=== PATIENT | female | born 1930 | race African-American/Black ===

== ENCOUNTER 2017-10-09 08:06 | Inpatient (IN) | payer MEDICARE, MEDICAID ==
[~2017-10-09] VITALS: Ht 162.6 cm; Wt 63.5 kg
[2017-10-09] MEDS ORDERED: POTASSIUM CHLO10 ME3 ORAL (08:23)
[2017-10-09] MEDS ORDERED: GABAPENTIN100 MG ORAL (08:23)
[2017-10-09] MEDS ORDERED: ACETAMINOPHEN325 M1 ORAL (08:23)
[2017-10-09] MEDS ORDERED: HYDROCHLOROTH12.5 M2 ORAL (08:23)
[2017-10-09] MEDS ORDERED: ENALAPRIL MALEA20 MG ORAL (08:23)
[2017-10-09] MEDS ORDERED: ASPIRIN81 MG ORAL (08:23)
[2017-10-09] MEDS ORDERED: FAMOTIDINE20 MG ORAL (08:23)
[2017-10-09] MEDS ORDERED: DULCOLAX10 MG RC (08:23)
[2017-10-09] MEDS ORDERED: COLACE100 MG ORAL (08:23)
[2017-10-09] MEDS ORDERED: METFORMIN HCL1000 M1 ORAL (08:23)
[2017-10-09] MEDS ORDERED: AMLODIPINE BESYL5 MG ORAL (08:23)
[2017-10-09] MEDS ORDERED: MILK OF MA400 MG/51 ORAL (08:23)
[2017-10-09] MEDS ORDERED: ATORVASTATIN CA40 MG ORAL (08:23)
--- NOTE | 2017-10-09 08:24 | Emergency Room Report ---
History of Present Illness General Chief Complaint: Chest Pain Source: Patient, EMS Present Illness HPI Patient presents with complaints of left-sided chest pain History of present illness is limited patient does have underlying mild dementia Points to the left upper chest for the discomfort unclear the exact time of ideology Denies any shortness of breath Patient was given nitroglycerin and aspirin by paramedics at this time reports improved pain level Denies any fall Allergies: Coded Allergies: No Known Allergies (Unverified , 10/09/17) Patient History Past Medical History: see triage record Pertinent Family History: none Reviewed Nursing Documentation: PMH: Agreed; PSxH: Agreed Nursing Documentation-PMH Past Medical History: No History, Except For Hx Cardiac Problems: Yes - CAD, angina, anemia, hyperlipidemia Hx Hypertension: Yes Hx Pacemaker: Yes History Of Psychiatric Problem: Yes - dementia Review of Systems All Other Systems: negative except mentioned in HPI Physical Exam Vital Signs Date Time Temp Pulse Resp B/P (MAP) Pulse Ox O2 Delivery O2 Flow Rate FiO2 10/09/17 08:00 98.2 70 18 118/65 100 Room Air 98.2 Sp02 EP Interpretation: reviewed, normal General Appearance: well appearing, no apparent distress Head: normocephalic, atraumatic Eyes: bilateral eye PERRL, bilateral eye EOMI ENT: hearing grossly normal, normal pharynx, TMs + canals normal, uvula midline Neck: full range of motion, supple, no meningismus, no bony tend Respiratory: lungs clear, normal breath sounds, no rhonchi, no respiratory distress, no retraction, no accessory muscle use Cardiovascular #1: normal peripheral pulses, regular rate, rhythm, no edema, no gallop, no JVD, no murmur Gastrointestinal: normal bowel sounds, non tender, soft, no mass, no organomegaly, non-distended, no guarding, no hernia, no pulsatile mass, no rebound Genitourinary: no CVA tenderness Musculoskeletal: normal inspection Neurologic: responsive - Mild confusion, 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 as tested, motor strength/tone normal, sensory intact Psychiatric: mood/affect normal Skin: normal color, no rash, warm/dry, palpation normal Lymphatic: normal inspection, no adenopathy Medical Decision Making Diagnostic Impression: Primary Impression: ACS (acute coronary syndrome) ER Course Patient is a fairly complex patient with multiple differential to consideration including but not limited to cardiac cardiopulmonary and vascular emergencies Patient's blood work is at baseline levels X-ray imaging does not show any acute pathology Patient stable for further inpatient care CBC no acute disease Chemistry no acute disease Troponin negative Rhythm Strip Diag. Results EP Interpretation: yes Rate: 66 Rhythm: NSR, no PVC's, no ectopy Last Vital Signs Date Time Temp Pulse Resp B/P (MAP) Pulse Ox O2 Delivery O2 Flow Rate FiO2 10/09/17 08:10 98.2 70 18 118/65 100 Room Air 98.2 Status: improved Disposition: ADMITTED INPATIENT Condition: Serious Danika Galarza DO Oct 09, 2017 08:24
[2017-10-09 08:37] LABS: BASOPHILS % (AUTO) 1.4 % (0.0-2.0); EOSINOPHILS % (AUTO) 5.4 % (0.0-3.0); HEMATOCRIT 34.1 % (37.0-47.0); HEMOGLOBIN 10.9 G/DL (12.0-16.0); LYMPHOCYTES % (AUTO) 41.1 % (20.0-45.0); MEAN CORPUSCULAR VOLUME 90 FL (80-99); MONOCYTES % (AUTO) 7.3 % (1.0-10.0); NEUTROPHILS % (AUTO) 44.9 % (45.0-75.0); PLATELET COUNT 275 K/UL (150-450); RED BLOOD COUNT 3.79 M/UL (4.20-5.40); RED CELL DISTRIBUTION WIDTH 10.7 % (11.6-14.8); WHITE BLOOD COUNT 6.3 K/UL (4.8-10.8)
[2017-10-09 08:50] LABS: ANION GAP 3 mmol/L (5-15); BLOOD UREA NITROGEN 19 mg/dL (7-18); CALCIUM 9.5 MG/DL (8.5-10.1); CARBON DIOXIDE 33 MMOL/L (21-32); CHLORIDE 103 MMOL/L (98-107); POTASSIUM 4.1 MMOL/L (3.5-5.1); SODIUM 139 MMOL/L (136-145)
[2017-10-09 09:00] VITALS: BP 127/72
[2017-10-09 09:03] LABS: ALANINE AMINOTRANSFERASE 19 U/L (12-78); ALBUMIN 3.1 G/DL (3.4-5.0); ALBUMIN/GLOBULIN RATIO 0.6 (1.0-2.7); ALKALINE PHOSPHATASE 65 U/L (46-116); ASPARTATE AMINO TRANSFERASE 18 U/L (15-37); BILIRUBIN,TOTAL 0.6 MG/DL (0.2-1.0); CKMB 0.8 NG/ML (0.0-3.6); CREATINE KINASE 40 U/L (26-308)
[2017-10-09] MEDS ORDERED: Enalaprilat 2.5mg/2ml Inj IV PRN (10:45)
[2017-10-09] MEDS ORDERED: Morphine Sulfate 2mg/ml Inj IVP PRN (10:45)
[2017-10-09] MEDS ORDERED: Ketorolac 30mg Inj IV PRN (10:45)
[2017-10-09] MEDS ORDERED: Miralax 17gm pkt ORAL PRN (10:45)
[2017-10-09] MEDS ORDERED: Albuterol/Ipratropium 3ml neb HHN PRN (10:45)
[2017-10-09] MEDS ORDERED: dilTIAZem HCl 25mg/5ml Inj IV PRN (10:45)
[2017-10-09] MEDS ORDERED: Nitroglycerin Subl 0.4mg tab SL PRN (10:48)
[2017-10-09] MEDS: NovoLOG Insulin Flexpen SUBQ SCH ×3 (11:30→21:58)
--- NOTE | 2017-10-09 11:53 | Consultation ---
History of Present Illness General Date patient seen: Oct 09, 2017 Time patient seen: 11:52 Chief Complaint: Chest Pain Present Illness HPI 86 year old female presents with precordial chest pain and pressure. Initial troponin normal, vitals stable. No radiation of pain, lasts several minutes and getting more frequent and intense, no relationship to food. no fevers or recent illnesses. Allergies: Coded Allergies: No Known Allergies (Unverified , 10/09/17) Medication History Scheduled Amlodipine Besylate* (Amlodipine Besylate*), 5 MG ORAL DAILY, (Reported) Aspirin* (Aspirin*), 81 MG ORAL DAILY, (Reported) Atorvastatin Calcium* (Atorvastatin Calcium*), 40 MG ORAL BEDTIME, (Reported) Docusate Sodium* (Colace*), 100 MG ORAL DAILY, (Reported) Enalapril Maleate* (Enalapril Maleate*), 20 MG ORAL DAILY, (Reported) Famotidine (Famotidine), 20 MG ORAL TWICE A DAY, (Reported) Gabapentin* (Gabapentin*), 100 MG ORAL BID, (Reported) Hydrochlorothiazide* (Hydrochlorothiazide*), 12.5 MG ORAL DAILY, (Reported) Magnesium Hydroxide* (Milk Of Magnesia*), 30 ML ORAL DAILY, (Reported) Metformin Hcl* (Metformin Hcl*), 1,000 MG ORAL BID, (Reported) Potassium Chloride (Potassium Chloride), 10 MEQ ORAL DAILY, (Reported) Scheduled PRN Acetaminophen* (Acetaminophen 325MG Tablet*), 650 MG ORAL Q4H PRN for Pain Scale (3-5), (Reported) Miscellaneous Medications Bisacodyl (Dulcolax), 10 MG RC, (Reported) Patient History Healthcare decision maker CARMEN CAMPUZANO Resuscitation status Advanced Directive on File No Review of Systems Constitutional: Reports: no symptoms Eye: Reports: no symptoms ENT: Reports: no symptoms Respiratory: Reports: no symptoms Cardiovascular: Reports: chest pain Gastrointestinal: Reports: no symptoms Genitourinary: Reports: no symptoms Musculoskeletal: Reports: no symptoms Skin: Reports: no symptoms Psychiatric: Reports: no symptoms Neurological: Reports: no symptoms Endocrine: Reports: no symptoms Hematologic/Lymphatic: Reports: no symptoms Physical Exam General Appearance: no apparent distress, alert Lines, tubes and drains: peripheral HEENT: normocephalic, atraumatic Neck: non-tender, normal alignment Respiratory/Chest: chest wall non-tender, lungs clear Cardiovascular/Chest: normal peripheral pulses, normal rate, regular rhythm Abdomen: normal bowel sounds, non tender Extremities: normal range of motion, non-tender Skin Exam: normal pigmentation, warm/dry 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, no motor/sensory deficits Last 24 Hour Vital Signs Date Time Temp Pulse Resp B/P (MAP) Pulse Ox O2 Delivery O2 Flow Rate FiO2 10/09/17 09:00 64 18 127/72 100 Room Air 10/09/17 08:10 98.2 70 18 118/65 100 Room Air 98.2 10/09/17 08:00 98.2 70 18 118/65 100 Room Air 98.2 Laboratory Tests Test 10/09/17 08:15 10/09/17 11:04 White Blood Count 6.3 K/UL (4.8-10.8) Red Blood Count 3.79 M/UL (4.20-5.40) L Hemoglobin 10.9 G/DL (12.0-16.0) L Hematocrit 34.1 % (37.0-47.0) L Mean Corpuscular Volume 90 FL (80-99) Mean Corpuscular Hemoglobin 28.8 PG (27.0-31.0) Mean Corpuscular Hemoglobin Concent 32.0 G/DL (32.0-36.0) Red Cell Distribution Width 10.7 % (11.6-14.8) L Platelet Count 275 K/UL (150-450) Mean Platelet Volume 7.5 FL (6.5-10.1) Neutrophils (%) (Auto) 44.9 % (45.0-75.0) L Lymphocytes (%) (Auto) 41.1 % (20.0-45.0) Monocytes (%) (Auto) 7.3 % (1.0-10.0) Eosinophils (%) (Auto) 5.4 % (0.0-3.0) H Basophils (%) (Auto) 1.4 % (0.0-2.0) Sodium Level 139 MMOL/L (136-145) Potassium Level 4.1 MMOL/L (3.5-5.1) Chloride Level 103 MMOL/L (98-107) Carbon Dioxide Level 33 MMOL/L (21-32) H Anion Gap 3 mmol/L (5-15) L Blood Urea Nitrogen 19 mg/dL (7-18) H Creatinine 1.0 MG/DL (0.55-1.30) Estimat Glomerular Filtration Rate mL/min (>60) Glucose Level 96 MG/DL (74-106) Calcium Level 9.5 MG/DL (8.5-10.1) Total Bilirubin 0.6 MG/DL (0.2-1.0) Aspartate Amino Transf (AST/SGOT) 18 U/L (15-37) Alanine Aminotransferase (ALT/SGPT) 19 U/L (12-78) Alkaline Phosphatase 65 U/L (46-116) Total Creatine Kinase 40 U/L (26-308) Creatine Kinase MB 0.8 NG/ML (0.0-3.6) Creatine Kinase MB Relative Index 2.0 Troponin I 0.000 ng/mL (0.000-0.056) Pending Total Protein 8.0 G/DL (6.4-8.2) Albumin 3.1 G/DL (3.4-5.0) L Globulin 4.9 g/dL Albumin/Globulin Ratio 0.6 (1.0-2.7) L Height (Feet): 5 Height (Inches): 4.00 Weight (Pounds): 140 Medications Current Medications Medications (Trade) Dose Ordered Sig/Duran Route PRN Reason Start Time Stop Time Status Last Admin Dose Admin Acetaminophen (Tylenol) 650 mg Q4H PRN ORAL FEVER 10/09/17 10:45 11/08/17 10:44 Albuterol/ Ipratropium (Albuterol/ Ipratropium) 3 ml Q4H PRN HHN Shortness of Breath 10/09/17 10:45 10/14/17 10:44 Amlodipine Besylate (Norvasc) 5 mg DAILY ORAL 10/10/17 09:00 11/09/17 08:59 Aspirin (ASA) 162 mg DAILY ORAL 10/10/17 09:00 11/09/17 08:59 Aspirin (ASA) 162 mg ONCE ORAL 10/09/17 12:00 10/09/17 13:00 Dextrose (Dextrose 50%) 25 ml STAT PRN IV Hypoglycemia 10/09/17 10:45 11/08/17 10:44 Dextrose (Dextrose 50%) 50 ml STAT PRN IV Hypoglycemia 10/09/17 10:45 11/08/17 10:44 Diltiazem HCl (Cardizem) 10 mg Q1H PRN IV heart rate more than 120, 10/09/17 10:45 11/08/17 10:44 Enalaprilat (Vasotec) 2.5 mg Q6H PRN IV sbp more than 160 10/09/17 10:45 11/08/17 10:44 Gabapentin (Neurontin) 100 mg BID ORAL 10/09/17 18:00 11/08/17 17:59 Heparin Sodium (Porcine) (Heparin 5000 units/ml) 5,000 units EVERY 8 HOURS SUBQ 10/09/17 14:00 11/08/17 13:59 Insulin Aspart (NovoLOG) BEFORE MEALS AND HS SUBQ 10/09/17 11:30 11/08/17 11:29 Ketorolac Tromethamine (Toradol 30mg) 15 mg Q6H PRN IV moderate pain ( 4-6) 10/09/17 10:45 10/14/17 10:44 Morphine Sulfate (Morphine Sulfate) 2 mg Q4H PRN IVP severe Pain (Pain Scale 7-10) 10/09/17 10:45 10/16/17 10:44 Nitroglycerin (Ntg) 0.4 mg Q5MIN X 3 DOSES PRN SL Prn Chest Pain 10/09/17 10:48 11/08/17 10:47 Ondansetron HCl (Zofran) 4 mg Q6H PRN IVP Nausea & Vomiting 10/09/17 10:45 11/08/17 10:44 Pantoprazole (Protonix) 40 mg DAILY ORAL 10/10/17 09:00 11/09/17 08:59 Pantoprazole (Protonix) 40 mg ONCE ORAL 10/09/17 12:00 10/09/17 13:00 Polyethylene Glycol (Miralax) 17 gm DAILYPRN PRN ORAL Constipation 10/09/17 10:45 11/08/17 10:44 Temazepam (Restoril) 15 mg HSPRN PRN ORAL Insomnia 10/09/17 21:00 10/16/17 20:59 Assessment/Plan Status: stable Assessment/Plan Assessment: Chest pain Plan: Serial EKG/Troponin Aspirin Statin Start heparin for: rising troponin, refractory chest pain, EKG changes, hemodynamic instability No indication for cardiac cath at this this time Stress test in AM Nitro prn chest pain TTE to evaluate LV function Alfredo Hernandez MD Oct 09, 2017 11:53
[2017-10-09 11:58] VITALS: BP 150/81
[2017-10-09] MEDS ORDERED: Aspirin Baby 81mg ORAL SCH (12:00)
[2017-10-09] MEDS ORDERED: Lexiscan 0.4mg/5ml syringe IV SCH (12:00)
--- NOTE | 2017-10-09 12:07 | Diagnostic Imaging Report ---
Indication: Chest pain Technique: One view of the chest Comparison: none Findings: Patient is slightly rotated to the right. Lungs and pleural spaces are clear. There is a left chest bifocal pacemaker. The heart size is normal. Aorta is tortuous and calcified. Impression: No acute process
--- NOTE | 2017-10-09 12:12 | History and Physical ---
History of Present Illness General Date patient seen: Oct 09, 2017 Reason for Hospitalization: Chest Pain Present Illness HPI 86 year old female with hx of CAD, HTN, debilitated, pacemaker, dementia [facility] resident presented to ER with complaints of left-sided chest pain. She points to the left upper chest for the discomfort. Patient was given nitroglycerin and aspirin by paramedics and she reports improved pain level. she is admitted to telemetry for further work up. Allergies: Coded Allergies: No Known Allergies (Unverified , 10/09/17) Medication History Scheduled Amlodipine Besylate* (Amlodipine Besylate*), 5 MG ORAL DAILY, (Reported) Aspirin* (Aspirin*), 81 MG ORAL DAILY, (Reported) Atorvastatin Calcium* (Atorvastatin Calcium*), 40 MG ORAL BEDTIME, (Reported) Docusate Sodium* (Colace*), 100 MG ORAL DAILY, (Reported) Enalapril Maleate* (Enalapril Maleate*), 20 MG ORAL DAILY, (Reported) Famotidine (Famotidine), 20 MG ORAL TWICE A DAY, (Reported) Gabapentin* (Gabapentin*), 100 MG ORAL BID, (Reported) Hydrochlorothiazide* (Hydrochlorothiazide*), 12.5 MG ORAL DAILY, (Reported) Magnesium Hydroxide* (Milk Of Magnesia*), 30 ML ORAL DAILY, (Reported) Metformin Hcl* (Metformin Hcl*), 1,000 MG ORAL BID, (Reported) Potassium Chloride (Potassium Chloride), 10 MEQ ORAL DAILY, (Reported) Scheduled PRN Acetaminophen* (Acetaminophen 325MG Tablet*), 650 MG ORAL Q4H PRN for Pain Scale (3-5), (Reported) Miscellaneous Medications Bisacodyl (Dulcolax), 10 MG RC, (Reported) Patient History Healthcare decision maker CARMEN CAMPUZANO Resuscitation status Advanced Directive on File No Past Medical/Surgical History Past Medical/Surgical History: (1) CAD (coronary artery disease) (2) Dementia (3) Pacemaker Review of Systems All Other Systems: negative except mentioned in HPI Physical Exam General Appearance: WD/WN Lines, tubes and drains: peripheral HEENT: normocephalic, atraumatic Neck: non-tender, normal alignment Respiratory/Chest: chest wall non-tender, lungs clear Breasts: no masses Cardiovascular/Chest: normal peripheral pulses Abdomen: normal bowel sounds, non tender Genitourinary/Rectal: normal genital exam Extremities: normal range of motion 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 Last 24 Hour Vital Signs Date Time Temp Pulse Resp B/P (MAP) Pulse Ox O2 Delivery O2 Flow Rate FiO2 10/09/17 11:58 96.8 84 18 150/81 (104) 100 96.8 10/09/17 11:20 98.2 64 18 127/72 100 Room Air 98.2 10/09/17 09:00 64 18 127/72 100 Room Air 10/09/17 08:10 98.2 70 18 118/65 100 Room Air 98.2 10/09/17 08:00 98.2 70 18 118/65 100 Room Air 98.2 Laboratory Tests Test 10/09/17 08:15 10/09/17 11:04 White Blood Count 6.3 K/UL (4.8-10.8) Red Blood Count 3.79 M/UL (4.20-5.40) L Hemoglobin 10.9 G/DL (12.0-16.0) L Hematocrit 34.1 % (37.0-47.0) L Mean Corpuscular Volume 90 FL (80-99) Mean Corpuscular Hemoglobin 28.8 PG (27.0-31.0) Mean Corpuscular Hemoglobin Concent 32.0 G/DL (32.0-36.0) Red Cell Distribution Width 10.7 % (11.6-14.8) L Platelet Count 275 K/UL (150-450) Mean Platelet Volume 7.5 FL (6.5-10.1) Neutrophils (%) (Auto) 44.9 % (45.0-75.0) L Lymphocytes (%) (Auto) 41.1 % (20.0-45.0) Monocytes (%) (Auto) 7.3 % (1.0-10.0) Eosinophils (%) (Auto) 5.4 % (0.0-3.0) H Basophils (%) (Auto) 1.4 % (0.0-2.0) Sodium Level 139 MMOL/L (136-145) Potassium Level 4.1 MMOL/L (3.5-5.1) Chloride Level 103 MMOL/L (98-107) Carbon Dioxide Level 33 MMOL/L (21-32) H Anion Gap 3 mmol/L (5-15) L Blood Urea Nitrogen 19 mg/dL (7-18) H Creatinine 1.0 MG/DL (0.55-1.30) Estimat Glomerular Filtration Rate mL/min (>60) Glucose Level 96 MG/DL (74-106) Calcium Level 9.5 MG/DL (8.5-10.1) Total Bilirubin 0.6 MG/DL (0.2-1.0) Aspartate Amino Transf (AST/SGOT) 18 U/L (15-37) Alanine Aminotransferase (ALT/SGPT) 19 U/L (12-78) Alkaline Phosphatase 65 U/L (46-116) Total Creatine Kinase 40 U/L (26-308) Creatine Kinase MB 0.8 NG/ML (0.0-3.6) Creatine Kinase MB Relative Index 2.0 Troponin I 0.000 ng/mL (0.000-0.056) 0.001 ng/mL (0.000-0.056) Total Protein 8.0 G/DL (6.4-8.2) Albumin 3.1 G/DL (3.4-5.0) L Globulin 4.9 g/dL Albumin/Globulin Ratio 0.6 (1.0-2.7) L Height (Feet): 5 Height (Inches): 4.00 Weight (Pounds): 140 Medications Current Medications Medications (Trade) Dose Ordered Sig/Duran Route PRN Reason Start Time Stop Time Status Last Admin Dose Admin Acetaminophen (Tylenol) 650 mg Q4H PRN ORAL FEVER 10/09/17 10:45 11/08/17 10:44 Albuterol/ Ipratropium (Albuterol/ Ipratropium) 3 ml Q4H PRN HHN Shortness of Breath 10/09/17 10:45 10/14/17 10:44 Amlodipine Besylate (Norvasc) 5 mg DAILY ORAL 10/10/17 09:00 11/09/17 08:59 Aspirin (ASA) 162 mg DAILY ORAL 10/10/17 09:00 11/09/17 08:59 Aspirin (ASA) 162 mg ONCE ORAL 10/09/17 12:00 10/09/17 13:00 Atorvastatin Calcium (Lipitor) 10 mg BEDTIME ORAL 10/09/17 21:00 11/08/17 20:59 UNV Dextrose (Dextrose 50%) 25 ml STAT PRN IV Hypoglycemia 10/09/17 10:45 11/08/17 10:44 Dextrose (Dextrose 50%) 50 ml STAT PRN IV Hypoglycemia 10/09/17 10:45 11/08/17 10:44 Diltiazem HCl (Cardizem) 10 mg Q1H PRN IV heart rate more than 120, 10/09/17 10:45 11/08/17 10:44 Enalaprilat (Vasotec) 2.5 mg Q6H PRN IV sbp more than 160 10/09/17 10:45 11/08/17 10:44 Gabapentin (Neurontin) 100 mg BID ORAL 10/09/17 18:00 11/08/17 17:59 Heparin Sodium (Porcine) (Heparin 5000 units/ml) 5,000 units EVERY 8 HOURS SUBQ 10/09/17 14:00 11/08/17 13:59 Insulin Aspart (NovoLOG) BEFORE MEALS AND HS SUBQ 10/09/17 11:30 11/08/17 11:29 Ketorolac Tromethamine (Toradol 30mg) 15 mg Q6H PRN IV moderate pain ( 4-6) 10/09/17 10:45 10/14/17 10:44 Morphine Sulfate (Morphine Sulfate) 2 mg Q4H PRN IVP severe Pain (Pain Scale 7-10) 10/09/17 10:45 10/16/17 10:44 Nitroglycerin (Ntg) 0.4 mg Q5MIN X 3 DOSES PRN SL Prn Chest Pain 10/09/17 10:48 11/08/17 10:47 Ondansetron HCl (Zofran) 4 mg Q6H PRN IVP Nausea & Vomiting 10/09/17 10:45 11/08/17 10:44 Pantoprazole (Protonix) 40 mg DAILY ORAL 10/10/17 09:00 11/09/17 08:59 Pantoprazole (Protonix) 40 mg ONCE ORAL 10/09/17 12:00 10/09/17 13:00 Polyethylene Glycol (Miralax) 17 gm DAILYPRN PRN ORAL Constipation 10/09/17 10:45 11/08/17 10:44 Regadenoson (Lexiscan) 0.4 mg ONCE ONCE IV 10/09/17 12:00 10/09/17 12:01 UNV Temazepam (Restoril) 15 mg HSPRN PRN ORAL Insomnia 10/09/17 21:00 10/16/17 20:59 Assessment/Plan Problem List: (1) ACS (acute coronary syndrome) ICD Codes: I24.9 - Acute ischemic heart disease, unspecified SNOMED: 979632280 (2) Costochondritis ICD Codes: M94.0 - Chondrocostal junction syndrome [[place]] SNOMED: 49320650 (3) Diabetes mellitus ICD Codes: E11.9 - Type 2 diabetes mellitus without complications SNOMED: 47506295 (4) CAD (coronary artery disease) ICD Codes: I25.10 - Atherosclerotic heart disease of [place] coronary artery without angina pectoris SNOMED: 76933087 (5) Pacemaker ICD Codes: Z95.0 - Presence of cardiac pacemaker SNOMED: 759475428 (6) Dementia ICD Codes: F03.90 - Unspecified dementia without behavioral disturbance SNOMED: 31243211 Assessment/Plan serial ekg, troponin stress test cardiac f/u check sliding scale hem Hem A1c dvt prophylaxis Zafar Brandt MD Oct 09, 2017 12:12
--- NOTE | 2017-10-09 13:34 | Consultation ---
History of Present Illness General Date patient seen: Oct 09, 2017 Chief Complaint: Chest Pain Present Illness HPI 86 year old female presents with precordial chest pain and pressure. the pt pw low energy anxiety and sad mood, the pt has memory impairment Allergies: Coded Allergies: No Known Allergies (Unverified , 10/09/17) Medication History Scheduled Amlodipine Besylate* (Amlodipine Besylate*), 5 MG ORAL DAILY, (Reported) Aspirin* (Aspirin*), 81 MG ORAL DAILY, (Reported) Atorvastatin Calcium* (Atorvastatin Calcium*), 40 MG ORAL BEDTIME, (Reported) Docusate Sodium* (Colace*), 100 MG ORAL DAILY, (Reported) Enalapril Maleate* (Enalapril Maleate*), 20 MG ORAL DAILY, (Reported) Famotidine (Famotidine), 20 MG ORAL TWICE A DAY, (Reported) Gabapentin* (Gabapentin*), 100 MG ORAL BID, (Reported) Hydrochlorothiazide* (Hydrochlorothiazide*), 12.5 MG ORAL DAILY, (Reported) Magnesium Hydroxide* (Milk Of Magnesia*), 30 ML ORAL DAILY, (Reported) Metformin Hcl* (Metformin Hcl*), 1,000 MG ORAL BID, (Reported) Potassium Chloride (Potassium Chloride), 10 MEQ ORAL DAILY, (Reported) Scheduled PRN Acetaminophen* (Acetaminophen 325MG Tablet*), 650 MG ORAL Q4H PRN for Pain Scale (3-5), (Reported) Miscellaneous Medications Bisacodyl (Dulcolax), 10 MG RC, (Reported) Patient History Limited by: medical condition History Provided By: Patient, Medical Record, PMD Healthcare decision maker CARMEN CAMPUZANO Resuscitation status Full Code Advanced Directive on File No Past Medical/Surgical History Past Medical/Surgical History: (1) CAD (coronary artery disease) (2) Dementia (3) Pacemaker (4) Diabetes mellitus (5) Costochondritis (6) ACS (acute coronary syndrome) Review of Systems Psychiatric: Reports: prior hx, anxiety, depressed feelings Physical Exam General Appearance: no apparent distress, alert Last 24 Hour Vital Signs Date Time Temp Pulse Resp B/P (MAP) Pulse Ox O2 Delivery O2 Flow Rate FiO2 10/09/17 12:15 Room Air 10/09/17 11:58 96.8 84 18 150/81 (104) 100 96.8 10/09/17 11:20 98.2 64 18 127/72 100 Room Air 98.2 10/09/17 09:00 64 18 127/72 100 Room Air 10/09/17 08:10 98.2 70 18 118/65 100 Room Air 98.2 10/09/17 08:00 98.2 70 18 11865 100 Room Air 98.2 Laboratory Tests Test 10/09/17 08:15 10/09/17 11:04 White Blood Count 6.3 K/UL (4.8-10.8) Red Blood Count 3.79 M/UL (4.20-5.40) L Hemoglobin 10.9 G/DL (12.0-16.0) L Hematocrit 34.1 % (37.0-47.0) L Mean Corpuscular Volume 90 FL (80-99) Mean Corpuscular Hemoglobin 28.8 PG (27.0-31.0) Mean Corpuscular Hemoglobin Concent 32.0 G/DL (32.0-36.0) Red Cell Distribution Width 10.7 % (11.6-14.8) L Platelet Count 275 K/UL (150-450) Mean Platelet Volume 7.5 FL (6.5-10.1) Neutrophils (%) (Auto) 44.9 % (45.0-75.0) L Lymphocytes (%) (Auto) 41.1 % (20.0-45.0) Monocytes (%) (Auto) 7.3 % (1.0-10.0) Eosinophils (%) (Auto) 5.4 % (0.0-3.0) H Basophils (%) (Auto) 1.4 % (0.0-2.0) Sodium Level 139 MMOL/L (136-145) Potassium Level 4.1 MMOL/L (3.5-5.1) Chloride Level 103 MMOL/L (98-107) Carbon Dioxide Level 33 MMOL/L (21-32) H Anion Gap 3 mmol/L (5-15) L Blood Urea Nitrogen 19 mg/dL (7-18) H Creatinine 1.0 MG/DL (0.55-1.30) Estimat Glomerular Filtration Rate mL/min (>60) Glucose Level 96 MG/DL (74-106) Calcium Level 9.5 MG/DL (8.5-10.1) Total Bilirubin 0.6 MG/DL (0.2-1.0) Aspartate Amino Transf (AST/SGOT) 18 U/L (15-37) Alanine Aminotransferase (ALT/SGPT) 19 U/L (12-78) Alkaline Phosphatase 65 U/L (46-116) Total Creatine Kinase 40 U/L (26-308) Creatine Kinase MB 0.8 NG/ML (0.0-3.6) Creatine Kinase MB Relative Index 2.0 Troponin I 0.000 ng/mL (0.000-0.056) 0.001 ng/mL (0.000-0.056) Total Protein 8.0 G/DL (6.4-8.2) Albumin 3.1 G/DL (3.4-5.0) L Globulin 4.9 g/dL Albumin/Globulin Ratio 0.6 (1.0-2.7) L Height (Feet): 5 Height (Inches): 4.00 Weight (Pounds): 140 Medications Current Medications Medications (Trade) Dose Ordered Sig/Duran Route PRN Reason Start Time Stop Time Status Last Admin Dose Admin Acetaminophen (Tylenol) 650 mg Q4H PRN ORAL FEVER 10/09/17 10:45 11/08/17 10:44 Albuterol/ Ipratropium (Albuterol/ Ipratropium) 3 ml Q4H PRN HHN Shortness of Breath 10/09/17 10:45 10/14/17 10:44 Amlodipine Besylate (Norvasc) 5 mg DAILY ORAL 10/10/17 09:00 11/09/17 08:59 Aspirin (ASA) 162 mg DAILY ORAL 10/10/17 09:00 11/09/17 08:59 Atorvastatin Calcium (Lipitor) 10 mg BEDTIME ORAL 10/09/17 21:00 11/08/17 20:59 Dextrose (Dextrose 50%) 25 ml STAT PRN IV Hypoglycemia 10/09/17 10:45 11/08/17 10:44 Dextrose (Dextrose 50%) 50 ml STAT PRN IV Hypoglycemia 10/09/17 10:45 11/08/17 10:44 Diltiazem HCl (Cardizem) 10 mg Q1H PRN IV heart rate more than 120, 10/09/17 10:45 11/08/17 10:44 Enalaprilat (Vasotec) 2.5 mg Q6H PRN IV sbp more than 160 10/09/17 10:45 11/08/17 10:44 Gabapentin (Neurontin) 100 mg BID ORAL 10/09/17 18:00 11/08/17 17:59 Heparin Sodium (Porcine) (Heparin 5000 units/ml) 5,000 units EVERY 8 HOURS SUBQ 10/09/17 14:00 11/08/17 13:59 Insulin Aspart (NovoLOG) BEFORE MEALS AND HS SUBQ 10/09/17 11:30 11/08/17 11:29 Ketorolac Tromethamine (Toradol 30mg) 15 mg Q6H PRN IV moderate pain ( 4-6) 10/09/17 10:45 10/14/17 10:44 Morphine Sulfate (Morphine Sulfate) 2 mg Q4H PRN IVP severe Pain (Pain Scale 7-10) 10/09/17 10:45 10/16/17 10:44 Nitroglycerin (Ntg) 0.4 mg Q5MIN X 3 DOSES PRN SL Prn Chest Pain 10/09/17 10:48 11/08/17 10:47 Ondansetron HCl (Zofran) 4 mg Q6H PRN IVP Nausea & Vomiting 10/09/17 10:45 11/08/17 10:44 Pantoprazole (Protonix) 40 mg DAILY ORAL 10/10/17 09:00 11/09/17 08:59 Polyethylene Glycol (Miralax) 17 gm DAILYPRN PRN ORAL Constipation 10/09/17 10:45 11/08/17 10:44 Regadenoson (Lexiscan) 0.4 mg ONCE IV 10/09/17 12:00 10/10/17 23:00 Temazepam (Restoril) 15 mg HSPRN PRN ORAL Insomnia 10/09/17 21:00 10/16/17 20:59 Assessment/Plan Assessment/Plan MDD Dementia fluoxetine 20mg po q daily. provided ro/Min Kowalski MD Oct 09, 2017 13:34
--- NOTE | 2017-10-09 15:20 | Cardiology Report ---
APPROVED REPORT EXAM: Two-dimensional and M-mode echocardiogram with Doppler and color Doppler. INDICATION LV function M-Mode DIMENSIONS IVSd2.0 (0.7-1.1cm)Left Atrium (MM)4.4 (1.6-4.0cm) LVDd4.1 (3.5-5.6cm)Aortic Root3.8 (2.0-3.7cm) PWd1.2 (0.7-1.1cm)Aortic Cusp Exc.1.9 (1.5-2.0cm) LVDs3.3 (2.5-4.0cm) PWs1.0 cm Technically difficult study due to poor acoustical windows. Normal left ventricular chamber size, systolic function and wall motion to extent visualized.the apical endocardium is poorly defined distal septal hypokinesis canot be excluded Left ventricular ejection fraction estimated to be 60-65 %. Moderate left ventricular hypertrophy. No evidence of pericardial effusion. All other cardiac chamber sizes are within normal limits. Focal aortic valve sclerosis with adequate cusp excursion. Thickened mitral valve leaflets with normal excursion. Mitral annulus and aortic root calcification. Pulmonic valve not well visualized. Thickened tricuspid valve leaflets with normal excursion. IVC at normal size with physiologic collapse. Pacemaker wire present in the right side chambers. A color flow and spectral Doppler study was performed and revealed: Mild aortic regurgitation. Mild mitral regurgitation. Mitral diastolic velocities suggest reduced left ventricular relaxation c/w LV diastolic dysfunction (Grade I ). Mild tricuspid regurgitation. Tricuspid systolic velocities suggests peak right ventricular systolic pressure of 44 mmHg, consistent with mild to moderate pulmonary hypertension.
[2017-10-09] MEDS: Heparin 5000 units/ml inj SUBQ SCH ×2 (15:40→21:59)
[2017-10-09 15:56] VITALS: BP 161/85
[2017-10-09 20:00] VITALS: BP 142/70
[2017-10-10] VITALS: BP 141/63
[2017-10-10 04:00] VITALS: BP 136/76
[2017-10-10] MEDS: Heparin 5000 units/ml inj SUBQ SCH ×3 (06:05→22:07)
[2017-10-10] MEDS: NovoLOG Insulin Flexpen SUBQ SCH ×4 (06:30→21:00)
[2017-10-10 07:48] LABS: BASOPHILS % (AUTO) 0.9 % (0.0-2.0); EOSINOPHILS % (AUTO) 5.3 % (0.0-3.0); HEMATOCRIT 33.2 % (37.0-47.0); HEMOGLOBIN 10.6 G/DL (12.0-16.0); LYMPHOCYTES % (AUTO) 41.1 % (20.0-45.0); MEAN CORPUSCULAR VOLUME 91 FL (80-99); MONOCYTES % (AUTO) 10.7 % (1.0-10.0); PLATELET COUNT 269 K/UL (150-450); RED BLOOD COUNT 3.67 M/UL (4.20-5.40); RED CELL DISTRIBUTION WIDTH 10.9 % (11.6-14.8); WHITE BLOOD COUNT 5.9 K/UL (4.8-10.8)
[2017-10-10 08:00] LABS: INR 1.1 (0.9-1.1)
[2017-10-10 08:14] LABS: CHOLESTEROL 132 MG/DL (< 200); HDL CHOLESTEROL 72 MG/DL (40-60); TRIGLYCERIDES 53 MG/DL (30-150)
[2017-10-10] MEDS: Aspirin Baby 81mg ORAL SCH (09:48)
--- NOTE | 2017-10-10 11:22 | Pulmonology Progress Note ---
Assessment/Plan Problems: (1) ACS (acute coronary syndrome) (2) Costochondritis (3) Diabetes mellitus (4) CAD (coronary artery disease) (5) Pacemaker (6) Dementia Assessment/Plan stress study in progress anemia w/u in progress psych evaluation check HemA1c to rule out DM Subjective ROS Limited/Unobtainable: No Constitutional: Reports: no symptoms HEENT: Repors: no symptoms Respiratory: Reports: no symptoms Allergies: Coded Allergies: No Known Allergies (Unverified , 10/09/17) Objective Last 24 Hour Vital Signs Date Time Temp Pulse Resp B/P (MAP) Pulse Ox O2 Delivery O2 Flow Rate FiO2 10/10/17 10:06 Room Air 10/10/17 09:48 94 136/76 10/10/17 08:00 80 10/10/17 07:50 94 18 Room Air 21 10/10/17 04:00 77 10/10/17 04:00 97.7 65 20 136/76 (96) 96 97.7 10/10/17 00:00 68 10/10/17 00:00 98.0 66 18 141/63 (89) 95 98.0 10/09/17 23:00 66 18 Room Air 21 10/09/17 21:00 Room Air 10/09/17 20:00 97.4 76 20 142/70 (94) 96 97.4 10/09/17 20:00 76 10/09/17 15:56 97.3 59 18 161/85 (110) 96 97.3 10/09/17 15:38 161/85 10/09/17 12:15 Room Air 10/09/17 11:58 96.8 84 18 150/81 (104) 100 96.8 10/09/17 11:20 98.2 64 18 127/72 100 Room Air 98.2 Intake and Output 10/09/17 10/10/17 19:00 07:00 Intake Total 300 ml Balance 300 ml Intake Oral 300 ml # Voids 2 6 # Bowel Movements 2 General Appearance: WD/WN HEENT: normocephalic, atraumatic Respiratory/Chest: chest wall non-tender, lungs clear Breasts: no masses Cardiovascular: normal peripheral pulses Abdomen: normal bowel sounds, no organomegaly, no scars Extremities: no cyanosis Skin: no rash Laboratory Tests 10/10/17 06:35: White Blood Count 5.9, Red Blood Count 3.67L, Hemoglobin 10.6L, Hematocrit 33.2L , Mean Corpuscular Volume 91, Mean Corpuscular Hemoglobin 28.8, Mean Corpuscular Hemoglobin Concent 31.8L, Red Cell Distribution Width 10.9L, Platelet Count 269, Mean Platelet Volume 7.5, Neutrophils (%) (Auto) 42.0L, Lymphocytes (%) (Auto) 41.1, Monocytes (%) (Auto) 10.7H, Eosinophils (%) (Auto) 5.3H, Basophils (%) (Auto) 0.9, Prothrombin Time 11.4, Prothromb Time International Ratio 1.1, Activated Partial Thromboplast Time 32, Troponin I 0.006, C-Reactive Protein, Quantitative 1.9H, Triglycerides Level 53, Cholesterol Level 132, LDL Cholesterol 49, HDL Cholesterol 72H, Cholesterol/HDL Ratio 1.8L, Thyroid Stimulating Hormone (TSH) 1.034 Current Medications Medications (Trade) Dose Ordered Sig/Duran Route PRN Reason Start Time Stop Time Status Last Admin Dose Admin Acetaminophen (Tylenol) 650 mg Q4H PRN ORAL FEVER 10/09/17 10:45 11/08/17 10:44 Albuterol/ Ipratropium (Albuterol/ Ipratropium) 3 ml Q4H PRN HHN Shortness of Breath 10/09/17 10:45 10/14/17 10:44 Amlodipine Besylate (Norvasc) 5 mg DAILY ORAL 10/10/17 09:00 11/09/17 08:59 10/10/17 09:48 Aspirin (ASA) 162 mg DAILY ORAL 10/10/17 09:00 11/09/17 08:59 10/10/17 09:48 Atorvastatin Calcium (Lipitor) 10 mg BEDTIME ORAL 10/09/17 21:00 11/08/17 20:59 10/09/17 21:59 Dextrose (Dextrose 50%) 25 ml STAT PRN IV Hypoglycemia 10/09/17 10:45 11/08/17 10:44 Dextrose (Dextrose 50%) 50 ml STAT PRN IV Hypoglycemia 10/09/17 10:45 11/08/17 10:44 Diltiazem HCl (Cardizem) 10 mg Q1H PRN IV heart rate more than 120, 10/09/17 10:45 11/08/17 10:44 Enalaprilat (Vasotec) 2.5 mg Q6H PRN IV sbp more than 160 10/09/17 10:45 11/08/17 10:44 10/09/17 15:38 Fluoxetine HCl (PROzac) 20 mg DAILY ORAL 10/10/17 09:00 11/09/17 08:59 10/10/17 09:48 Gabapentin (Neurontin) 100 mg BID ORAL 10/09/17 18:00 11/08/17 17:59 10/10/17 09:48 Heparin Sodium (Porcine) (Heparin 5000 units/ml) 5,000 units EVERY 8 HOURS SUBQ 10/09/17 14:00 11/08/17 13:59 10/10/17 06:05 Insulin Aspart (NovoLOG) BEFORE MEALS AND HS SUBQ 10/09/17 11:30 11/08/17 11:29 10/09/17 21:58 Ketorolac Tromethamine (Toradol 30mg) 15 mg Q6H PRN IV moderate pain ( 4-6) 10/09/17 10:45 10/14/17 10:44 Morphine Sulfate (Morphine Sulfate) 2 mg Q4H PRN IVP severe Pain (Pain Scale 7-10) 10/09/17 10:45 10/16/17 10:44 Nitroglycerin (Ntg) 0.4 mg Q5MIN X 3 DOSES PRN SL Prn Chest Pain 10/09/17 10:48 11/08/17 10:47 Ondansetron HCl (Zofran) 4 mg Q6H PRN IVP Nausea & Vomiting 10/09/17 10:45 11/08/17 10:44 Pantoprazole (Protonix) 40 mg DAILY ORAL 10/10/17 09:00 11/09/17 08:59 10/10/17 09:48 Polyethylene Glycol (Miralax) 17 gm DAILYPRN PRN ORAL Constipation 10/09/17 10:45 11/08/17 10:44 Regadenoson (Lexiscan) 0.4 mg ONCE IV 10/09/17 12:00 10/10/17 23:00 Temazepam (Restoril) 15 mg HSPRN PRN ORAL Insomnia 10/09/17 21:00 10/16/17 20:59 Zafar Brantd MD Oct 10, 2017 11:22
--- NOTE | 2017-10-10 12:26 | General Progress Note ---
Assessment/Plan Status: stable, progressing Assessment/Plan MDD Dementia fluoxetine 20mg po q daily. provided ro/st Subjective Date patient seen: Oct 10, 2017 Neurologic/Psychiatric: Reports: anxiety, depressed Allergies: Coded Allergies: No Known Allergies (Unverified , 10/09/17) Objective Last 24 Hour Vital Signs Date Time Temp Pulse Resp B/P (MAP) Pulse Ox O2 Delivery O2 Flow Rate FiO2 10/10/17 10:06 Room Air 10/10/17 09:48 94 136/76 10/10/17 08:00 80 10/10/17 07:50 94 18 Room Air 21 10/10/17 04:00 77 10/10/17 04:00 97.7 65 20 136/76 (96) 96 97.7 10/10/17 00:00 68 10/10/17 00:00 98.0 66 18 141/63 (89) 95 98.0 10/09/17 23:00 66 18 Room Air 21 10/09/17 21:00 Room Air 10/09/17 20:00 97.4 76 20 142/70 (94) 96 97.4 10/09/17 20:00 76 10/09/17 15:56 97.3 59 18 161/85 (110) 96 97.3 10/09/17 15:38 161/85 Intake and Output 10/09/17 10/10/17 19:00 07:00 Intake Total 300 ml Balance 300 ml Intake Oral 300 ml # Voids 2 6 # Bowel Movements 2 Laboratory Tests 10/10/17 06:35: White Blood Count 5.9, Red Blood Count 3.67L, Hemoglobin 10.6L, Hematocrit 33.2L , Mean Corpuscular Volume 91, Mean Corpuscular Hemoglobin 28.8, Mean Corpuscular Hemoglobin Concent 31.8L, Red Cell Distribution Width 10.9L, Platelet Count 269, Mean Platelet Volume 7.5, Neutrophils (%) (Auto) 42.0L, Lymphocytes (%) (Auto) 41.1, Monocytes (%) (Auto) 10.7H, Eosinophils (%) (Auto) 5.3H, Basophils (%) (Auto) 0.9, Prothrombin Time 11.4, Prothromb Time International Ratio 1.1, Activated Partial Thromboplast Time 32, Hemoglobin A1c 6.9H, Troponin I 0.006, C-Reactive Protein, Quantitative 1.9H, Triglycerides Level 53, Cholesterol Level 132, LDL Cholesterol 49, HDL Cholesterol 72H, Cholesterol/HDL Ratio 1.8L, Thyroid Stimulating Hormone (TSH) 1.034 Height (Feet): 5 Height (Inches): 4.00 Weight (Pounds): 140 General Appearance: no apparent distress, alert Neurologic: oriented x 3, responsive, depressed affect Min Harrell MD Oct 10, 2017 12:26
--- NOTE | 2017-10-10 14:03 | Cardiology Progress Note ---
Assessment/Plan Status: stable Assessment/Plan Assessment: Chest pain Plan: Serial EKG/Troponin Aspirin Statin Start heparin for: rising troponin, refractory chest pain, EKG changes, hemodynamic instability No indication for cardiac cath at this this time Stress test in AM - dispo pending results Nitro prn chest pain TTE --> normal LV function mild MR/TR and diastolic dysfunction Subjective Cardiovascular: Reports: no symptoms Respiratory: Reports: no symptoms Gastrointestinal/Abdominal: Reports: no symptoms Genitourinary: Reports: no symptoms Subjective No acute events, troponin negative x3, Echo with hypertensive heart disease and diastolic dysfunction, no complaints, vitals stable, for stress test today Objective Last 24 Hour Vital Signs Date Time Temp Pulse Resp B/P (MAP) Pulse Ox O2 Delivery O2 Flow Rate FiO2 10/10/17 12:00 70 10/10/17 10:06 Room Air 10/10/17 09:48 94 136/76 10/10/17 08:00 80 10/10/17 07:50 94 18 Room Air 21 10/10/17 04:00 77 10/10/17 04:00 97.7 65 20 136/76 (96) 96 97.7 10/10/17 00:00 68 10/10/17 00:00 98.0 66 18 141/63 (89) 95 98.0 10/09/17 23:00 66 18 Room Air 21 10/09/17 21:00 Room Air 10/09/17 20:00 97.4 76 20 142/70 (94) 96 97.4 10/09/17 20:00 76 10/09/17 15:56 97.3 59 18 161/85 (110) 96 97.3 10/09/17 15:38 161/85 General Appearance: no apparent distress, alert EENT: PERRL/EOMI, normal ENT inspection Neck: non-tender, normal alignment Rhythm: NSR Cardiovascular: normal peripheral pulses, normal rate Respiratory/Chest: chest wall non-tender, lungs clear Abdomen: normal bowel sounds, non tender Extremities: normal range of motion, non-tender Neurologic: 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-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 grossly normal, no motor/sensory deficits Intake and Output 10/09/17 10/10/17 19:00 07:00 Intake Total 300 ml Balance 300 ml Intake Oral 300 ml # Voids 2 6 # Bowel Movements 2 Laboratory Tests Test 10/10/17 06:35 White Blood Count 5.9 K/UL (4.8-10.8) Red Blood Count 3.67 M/UL (4.20-5.40) L Hemoglobin 10.6 G/DL (12.0-16.0) L Hematocrit 33.2 % (37.0-47.0) L Mean Corpuscular Volume 91 FL (80-99) Mean Corpuscular Hemoglobin 28.8 PG (27.0-31.0) Mean Corpuscular Hemoglobin Concent 31.8 G/DL (32.0-36.0) L Red Cell Distribution Width 10.9 % (11.6-14.8) L Platelet Count 269 K/UL (150-450) Mean Platelet Volume 7.5 FL (6.5-10.1) Neutrophils (%) (Auto) 42.0 % (45.0-75.0) L Lymphocytes (%) (Auto) 41.1 % (20.0-45.0) Monocytes (%) (Auto) 10.7 % (1.0-10.0) H Eosinophils (%) (Auto) 5.3 % (0.0-3.0) H Basophils (%) (Auto) 0.9 % (0.0-2.0) Prothrombin Time 11.4 SEC (9.30-11.50) Prothromb Time International Ratio 1.1 (0.9-1.1) Activated Partial Thromboplast Time 32 SEC (23-33) Hemoglobin A1c 6.9 % (4.3-6.0) H Troponin I 0.006 ng/mL (0.000-0.056) C-Reactive Protein, Quantitative 1.9 mg/dL (0.00-0.90) H Triglycerides Level 53 MG/DL (30-150) Cholesterol Level 132 MG/DL (< 200) LDL Cholesterol 49 mg/dL (<100) HDL Cholesterol 72 MG/DL (40-60) H Cholesterol/HDL Ratio 1.8 (3.3-4.4) L Thyroid Stimulating Hormone (TSH) 1.034 uiU/mL (0.358-3.740) Alfredo Hernandez MD Oct 10, 2017 14:03
--- NOTE | 2017-10-10 15:54 | Cardiology Report ---
APPROVED REPORT EKG Measurement Heart [id number] [place] 212P [id number] Abnormal ECG Dual-Chamber Pacemaker
[2017-10-10 16:00] VITALS: BP 131/60
--- NOTE | 2017-10-10 16:08 | Diagnostic Imaging Report ---
Indications: Chest pain Technique: Single day single isotope protocol utilized. Initially, resting images obtained using IV administration 10.9 millicuries 99M technetium Myoview. Subsequently, patient underwent lexiscan stress testing. See cardiology report for details. During Lexiscan infusion, IV administration 30.3 mCi 99 M technetium Myoview. SPECT and planar images obtained. SPECT images gated to 8 phases of the cardiac cycle were also obtained, and reformatted into cine images for evaluation of ejection fraction. Comparison: none Findings: Cardiology report does not describe presence or absence of symptoms during infusion. Per cardiology report, resting EKG demonstrates ventricular paced rhythm. Presence or absence of EKG changes not described. Imaging demonstrates a large perfusion defect involving the apex, extending well into the anteroseptal and inferolateral maguire. This appears to be fixed on the delayed images, with no evidence of reperfusion.. Calculated post stress ejection fraction 80%. No definite focal wall motion abnormality other than the apex Impression: Nonischemic clinical response to pharmacologic stress, per cardiology report Nondiagnostic electrocardiographic response to pharmacologic stress, per cardiology report Large fixed defect involving the apex, anteroseptal and inferolateral wall, consistent with infarct. No evidence of rosie-infarct ischemia Calculated post stress ejection fraction greater than 70%, without evidence of wall motion abnormality Note lack of concordance between the perfusion findings and the ejection fraction/wall motion, suggesting one or the other may be artifactual. Review of echocardiographic results is concordant with the wall motion study ejection fraction analysis, indicating the degree of perfusion abnormality may be exaggerated
[2017-10-10 19:59] VITALS: BP 150/78
[2017-10-11] VITALS: BP 159/91
[2017-10-11 04:27] VITALS: BP 152/69
[2017-10-11] MEDS: NovoLOG Insulin Flexpen SUBQ SCH ×2 (06:30→11:30)
[2017-10-11] MEDS: Heparin 5000 units/ml inj SUBQ SCH (06:45)
[2017-10-11 07:15] LABS: EOSINOPHILS % (AUTO) 4.4 % (0.0-3.0); HEMATOCRIT 32.7 % (37.0-47.0); HEMOGLOBIN 10.6 G/DL (12.0-16.0); LYMPHOCYTES % (AUTO) 46.7 % (20.0-45.0); MEAN CORPUSCULAR VOLUME 90 FL (80-99); MONOCYTES % (AUTO) 11.3 % (1.0-10.0); NEUTROPHILS % (AUTO) 36.6 % (45.0-75.0); PLATELET COUNT 282 K/UL (150-450); RED BLOOD COUNT 3.65 M/UL (4.20-5.40); RED CELL DISTRIBUTION WIDTH 10.7 % (11.6-14.8)
[2017-10-11 07:36] LABS: LACTATE DEHYDROGENASE 152 U/L (81-234)
[2017-10-11 07:52] LABS: INR 1.1 (0.9-1.1)
[2017-10-11 08:00] VITALS: BP 153/74
--- NOTE | 2017-10-11 09:01 | Cardiology Progress Note ---
Assessment/Plan Status: stable Assessment/Plan Assessment: Chest pain Plan: Stress test negative --> ok to discharge back to [facility] home today Aspirin Statin No indication for cardiac cath at this this time Nitro prn chest pain TTE --> normal LV function mild MR/TR and diastolic dysfunction Low salt diet Continue antihypertensive treatment Subjective Cardiovascular: Reports: no symptoms Respiratory: Reports: no symptoms Gastrointestinal/Abdominal: Reports: no symptoms Genitourinary: Reports: no symptoms Subjective No acute events, troponin negative x3, Echo with hypertensive heart disease and diastolic dysfunction, no complaints, vitals stable Stress test negative for ischemia, chest pain resolved For D/c today Objective Last 24 Hour Vital Signs Date Time Temp Pulse Resp B/P (MAP) Pulse Ox O2 Delivery O2 Flow Rate FiO2 10/11/17 08:00 73 10/11/17 08:00 97.5 77 18 153/74 (100) 96 97.5 59 10/11/17 04:27 96.6 59 15 152/69 (96) 95 96.6 59 10/11/17 04:00 62 10/11/17 00:00 96.6 77 16 159/91 (113) 98 96.6 77 10/11/17 00:00 65 10/10/17 21:00 Room Air 10/10/17 20:00 76 10/10/17 19:59 96.4 82 18 150/78 (102) 96 96.4 82 10/10/17 19:35 79 18 Room Air 21 10/10/17 16:00 97.0 81 18 131/60 (83) 99 97.0 10/10/17 16:00 84 10/10/17 12:00 70 10/10/17 10:06 Room Air 10/10/17 09:48 94 136/76 General Appearance: no apparent distress, alert EENT: PERRL/EOMI, normal ENT inspection Neck: non-tender, normal alignment, supple Rhythm: NSR Cardiovascular: normal peripheral pulses, normal rate, regular rhythm Respiratory/Chest: chest wall non-tender, lungs clear Abdomen: normal bowel sounds, non tender, soft Extremities: normal range of motion, non-tender 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: 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 grossly normal, no motor/sensory deficits Intake and Output 10/10/17 10/11/17 19:00 07:00 Intake Total 120 ml Balance 120 ml Intake Oral 120 ml # Voids 4 3 # Bowel Movements 1 Laboratory Tests Test 10/11/17 04:00 10/11/17 06:30 Iron Level Pending Unsaturated Iron Binding Pending Lactate Dehydrogenase 152 U/L (81-234) Troponin I 0.007 ng/mL (0.000-0.056) Vitamin B12 Level Pending Folate Pending White Blood Count 6.0 K/UL (4.8-10.8) Red Blood Count 3.65 M/UL (4.20-5.40) L Hemoglobin 10.6 G/DL (12.0-16.0) L Hematocrit 32.7 % (37.0-47.0) L Mean Corpuscular Volume 90 FL (80-99) Mean Corpuscular Hemoglobin 29.2 PG (27.0-31.0) Mean Corpuscular Hemoglobin Concent 32.6 G/DL (32.0-36.0) Red Cell Distribution Width 10.7 % (11.6-14.8) L Platelet Count 282 K/UL (150-450) Mean Platelet Volume 7.3 FL (6.5-10.1) Neutrophils (%) (Auto) 36.6 % (45.0-75.0) L Lymphocytes (%) (Auto) 46.7 % (20.0-45.0) H Monocytes (%) (Auto) 11.3 % (1.0-10.0) H Eosinophils (%) (Auto) 4.4 % (0.0-3.0) H Basophils (%) (Auto) 1.0 % (0.0-2.0) Neutrophils % (Manual) Pending Lymphocytes % (Manual) Pending Platelet Estimate Pending Platelet Morphology Pending Erythrocyte Sedimentation Rate Pending Reticulocyte Count Pending Prothrombin Time 11.4 SEC (9.30-11.50) Prothromb Time International Ratio 1.1 (0.9-1.1) Activated Partial Thromboplast Time 36 SEC (23-33) H Carcinoembryonic Antigen Pending Microbiology Date/Time Source Procedure Growth Status 10/09/17 08:15 Rectum VRE Culture - Final NO VANCOMYCIN RESISTANT ENTEROCOCCUS ... Complete 10/09/17 08:15 Rectum - Final NO CARBAPENEM-RESISTANT ENTEROBACTERI... Complete Alfredo Hernandez MD Oct 11, 2017 09:01
[2017-10-11] MEDS: Aspirin Baby 81mg ORAL SCH (09:20)
[2017-10-11 10:56] LABS: % IRON SATURATION 25 % (15-50); IRON 51 ug/dL (50-175); TOTAL IRON BINDING CAPACITY 207 ug/dL (250-450)
--- NOTE | 2017-10-11 11:16 | General Progress Note ---
Assessment/Plan Status: stable Assessment/Plan MDD Dementia fluoxetine 20mg po q daily. provided ro/st Subjective Date patient seen: Oct 11, 2017 Neurologic/Psychiatric: Reports: anxiety, depressed, emotional problems Allergies: Coded Allergies: No Known Allergies (Unverified , 10/09/17) Objective Last 24 Hour Vital Signs Date Time Temp Pulse Resp B/P (MAP) Pulse Ox O2 Delivery O2 Flow Rate FiO2 10/11/17 09:20 73 153/74 10/11/17 09:00 Room Air 10/11/17 08:00 73 10/11/17 08:00 97.5 77 18 153/74 (100) 96 97.5 59 10/11/17 04:27 96.6 59 15 152/69 (96) 95 96.6 59 10/11/17 04:00 62 10/11/17 00:00 96.6 77 16 159/91 (113) 98 96.6 77 10/11/17 00:00 65 10/10/17 21:00 Room Air 10/10/17 20:00 76 10/10/17 19:59 96.4 82 18 150/78 (102) 96 96.4 82 10/10/17 19:35 79 18 Room Air 21 10/10/17 16:00 97.0 81 18 131/60 (83) 99 97.0 10/10/17 16:00 84 10/10/17 12:00 70 Intake and Output 10/10/17 10/11/17 19:00 07:00 Intake Total 120 ml Balance 120 ml Intake Oral 120 ml # Voids 4 3 # Bowel Movements 1 Laboratory Tests 10/11/17 04:00: Iron Level 51, Total Iron Binding Capacity 207L, Percent Iron Saturation 25, Unsaturated Iron Binding 156, Lactate Dehydrogenase 152, Troponin I 0.007, Vitamin B12 Level 419, Folate 19.1 10/11/17 06:30: White Blood Count 6.0, Red Blood Count 3.65L, Hemoglobin 10.6L, Hematocrit 32.7L , Mean Corpuscular Volume 90, Mean Corpuscular Hemoglobin 29.2, Mean Corpuscular Hemoglobin Concent 32.6, Red Cell Distribution Width 10.7L, Platelet Count 282, Mean Platelet Volume 7.3, Neutrophils (%) (Auto) 36.6L, Lymphocytes (%) (Auto) 46.7H, Monocytes (%) (Auto) 11.3H, Eosinophils (%) (Auto ) 4.4H, Basophils (%) (Auto) 1.0, Differential Total Cells Counted 100, Neutrophils % (Manual) 36L, Lymphocytes % (Manual) 52H, Monocytes % (Manual) 9, Eosinophils % (Manual) 3, Basophils % (Manual) 0, Band Neutrophils 0, Platelet Estimate Adequate, Platelet Morphology Normal, Hypochromasia 1+, Erythrocyte Sedimentation Rate 98H, Reticulocyte Count 0.5, Prothrombin Time 11.4, Prothromb Time International Ratio 1.1, Activated Partial Thromboplast Time 36H , Carcinoembryonic Antigen [Pending] Height (Feet): 5 Height (Inches): 4.00 Weight (Pounds): 140 General Appearance: no apparent distress, alert Neurologic: depressed affect Min Harrell MD Oct 11, 2017 11:16
[2017-10-11 12:02] VITALS: BP 146/74
--- NOTE | 2017-10-11 12:36 | Pulmonology Progress Note ---
Assessment/Plan Problems: (1) ACS (acute coronary syndrome) (2) Costochondritis (3) Diabetes mellitus (4) CAD (coronary artery disease) (5) Pacemaker (6) Dementia Assessment/Plan stress study negative anemia w/u in progress, OB pending psych evaluation check HemA1c, slightly elevated med/surg pt/ot Subjective ROS Limited/Unobtainable: No Constitutional: Reports: no symptoms HEENT: Repors: no symptoms Respiratory: Reports: no symptoms Allergies: Coded Allergies: No Known Allergies (Unverified , 10/09/17) Objective Last 24 Hour Vital Signs Date Time Temp Pulse Resp B/P (MAP) Pulse Ox O2 Delivery O2 Flow Rate FiO2 10/11/17 12:02 96.8 79 16 146/74 (98) 97 96.8 79 10/11/17 09:20 73 153/74 10/11/17 09:00 Room Air 10/11/17 08:00 73 10/11/17 08:00 97.5 77 18 153/74 (100) 96 97.5 59 10/11/17 04:27 96.6 59 15 152/69 (96) 95 96.6 59 10/11/17 04:00 62 10/11/17 00:00 96.6 77 16 159/91 (113) 98 96.6 77 10/11/17 00:00 65 10/10/17 21:00 Room Air 10/10/17 20:00 76 10/10/17 19:59 96.4 82 18 150/78 (102) 96 96.4 82 10/10/17 19:35 79 18 Room Air 21 10/10/17 16:00 97.0 81 18 131/60 (83) 99 97.0 10/10/17 16:00 84 Intake and Output 10/10/17 10/11/17 19:00 07:00 Intake Total 120 ml Balance 120 ml Intake Oral 120 ml # Voids 4 3 # Bowel Movements 1 General Appearance: WD/WN HEENT: normocephalic Respiratory/Chest: chest wall non-tender, lungs clear Cardiovascular: normal peripheral pulses, normal rate Abdomen: normal bowel sounds, no organomegaly Genitourinary: normal external genitalia Extremities: no clubbing 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 Complete 10/09/17 08:15 Rectum VRE Culture - Final NO VANCOMYCIN RESISTANT ENTEROCOCCUS ... Complete 10/09/17 08:15 Rectum - Final NO CARBAPENEM-RESISTANT ENTEROBACTERI... Complete Laboratory Tests 10/11/17 04:00: Iron Level 51, Total Iron Binding Capacity 207L, Percent Iron Saturation 25, Unsaturated Iron Binding 156, Lactate Dehydrogenase 152, Troponin I 0.007, Vitamin B12 Level 419, Folate 19.1 10/11/17 06:30: White Blood Count 6.0, Red Blood Count 3.65L, Hemoglobin 10.6L, Hematocrit 32.7L , Mean Corpuscular Volume 90, Mean Corpuscular Hemoglobin 29.2, Mean Corpuscular Hemoglobin Concent 32.6, Red Cell Distribution Width 10.7L, Platelet Count 282, Mean Platelet Volume 7.3, Neutrophils (%) (Auto) 36.6L, Lymphocytes (%) (Auto) 46.7H, Monocytes (%) (Auto) 11.3H, Eosinophils (%) (Auto ) 4.4H, Basophils (%) (Auto) 1.0, Differential Total Cells Counted 100, Neutrophils % (Manual) 36L, Lymphocytes % (Manual) 52H, Monocytes % (Manual) 9, Eosinophils % (Manual) 3, Basophils % (Manual) 0, Band Neutrophils 0, Other Cell Type Pathologist comment, Platelet Estimate Adequate, Platelet Morphology Normal, Hypochromasia 1+, Erythrocyte Sedimentation Rate 98H, Reticulocyte Count 0.5, Prothrombin Time 11.4, Prothromb Time International Ratio 1.1, Activated Partial Thromboplast Time 36H, Carcinoembryonic Antigen [Pending] Current Medications Medications (Trade) Dose Ordered Sig/Duran Route PRN Reason Start Time Stop Time Status Last Admin Dose Admin Acetaminophen (Tylenol) 650 mg Q4H PRN ORAL FEVER 10/09/17 10:45 11/08/17 10:44 Albuterol/ Ipratropium (Albuterol/ Ipratropium) 3 ml Q4H PRN HHN Shortness of Breath 10/09/17 10:45 10/14/17 10:44 Amlodipine Besylate (Norvasc) 5 mg DAILY ORAL 10/10/17 09:00 11/09/17 08:59 10/11/17 09:20 Aspirin (ASA) 162 mg DAILY ORAL 10/10/17 09:00 11/09/17 08:59 10/11/17 09:20 Atorvastatin Calcium (Lipitor) 10 mg BEDTIME ORAL 10/09/17 21:00 11/08/17 20:59 10/10/17 22:07 Dextrose (Dextrose 50%) 25 ml STAT PRN IV Hypoglycemia 10/09/17 10:45 11/08/17 10:44 Dextrose (Dextrose 50%) 50 ml STAT PRN IV Hypoglycemia 10/09/17 10:45 11/08/17 10:44 Diltiazem HCl (Cardizem) 10 mg Q1H PRN IV heart rate more than 120, 10/09/17 10:45 11/08/17 10:44 Enalaprilat (Vasotec) 2.5 mg Q6H PRN IV sbp more than 160 10/09/17 10:45 11/08/17 10:44 10/09/17 15:38 Fluoxetine HCl (PROzac) 20 mg DAILY ORAL 10/10/17 09:00 11/09/17 08:59 10/11/17 09:20 Gabapentin (Neurontin) 100 mg BID ORAL 10/09/17 18:00 11/08/17 17:59 10/11/17 09:20 Heparin Sodium (Porcine) (Heparin 5000 units/ml) 5,000 units EVERY 8 HOURS SUBQ 10/09/17 14:00 11/08/17 13:59 10/11/17 06:45 Insulin Aspart (NovoLOG) BEFORE MEALS AND HS SUBQ 10/09/17 11:30 11/08/17 11:29 10/09/17 21:58 Ketorolac Tromethamine (Toradol 30mg) 15 mg Q6H PRN IV moderate pain ( 4-6) 10/09/17 10:45 10/14/17 10:44 Morphine Sulfate (Morphine Sulfate) 2 mg Q4H PRN IVP severe Pain (Pain Scale 7-10) 10/09/17 10:45 10/16/17 10:44 Nitroglycerin (Ntg) 0.4 mg Q5MIN X 3 DOSES PRN SL Prn Chest Pain 10/09/17 10:48 11/08/17 10:47 Ondansetron HCl (Zofran) 4 mg Q6H PRN IVP Nausea & Vomiting 10/09/17 10:45 11/08/17 10:44 Pantoprazole (Protonix) 40 mg DAILY ORAL 10/10/17 09:00 11/09/17 08:59 10/11/17 09:20 Polyethylene Glycol (Miralax) 17 gm DAILYPRN PRN ORAL Constipation 10/09/17 10:45 11/08/17 10:44 Temazepam (Restoril) 15 mg HSPRN PRN ORAL Insomnia 10/09/17 21:00 10/16/17 20:59 Zafar Brandt MD Oct 11, 2017 12:36
[2017-10-11] MEDS ORDERED: Tubing IV Secondary IV ONE (13:39)
--- NOTE | 2017-10-11 15:57 | Diagnostic Imaging Report ---
APPROVED REPORT CPT Code: 49690 Present Symptoms Comments: BILATERAL LEGS PAIN. BILATERAL: Imaging reveals a patent deep venous system bilaterally. There is no evidence of thrombus within the femoral, popliteal or tibial segments. The greater saphenous veins are also within normal limits. Doppler indicates normal spontaneous flow within these segments.
--- NOTE | 2017-10-12 10:44 | Discharge Summary ---
Discharge Summary Discharge Summary _ DATE OF ADMISSION: 10/09/2017 DATE OF DISCHARGE: 10/11/2017 CONSULTANTS: Dr. 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 She points to the left chest for discomfort. She was given nitroglycerin and aspirin in by paramedics. On evaluation at ED, vital signs were stable. Initial troponin was negative. Due to her risk factors, she was admitted for evaluation of ACS. She underwent cardiac evaluation. She was given aspirin and Lipitor. She was placed on morphine and nitroglycerine prn. Cardiac markers were monitored. Thyroid was normal. Venous duplex of lower extremity was negative for acute DVT bilaterally. Echocardiogram showed ejection fraction of 60-65%. There was mild aortic regurgitation, mild regurgitation and moderate pulmonary hypertension. Patient had low energy with anxiety and depressed mood. She had memory impairment. She was seen by psychiatrist and was given fluoxetine 20 mg daily. Blood glucose was monitored. Hemoglobin A1c 6.9. He was given insulin sliding scale. Stress test was negative. She was given PT and OT. She was eventually discharged back to [facility]. FINAL DIAGNOSES: Coronary artery disease Costochondritis Diabetes mellitus Pacemaker Dementia Major depressive disorder DISPOSITION: Patient was discharged to [facility]. I have been assigned to dictate discharge summary on this account, and I was not involved in the patient's management. Elisa Macdonald NP Oct 12, 2017 10:44
== END 2017-10-11 13:40 | DRG 206 ==
LOC: EDBD 08:06 → EMR 08:35 → 2E 08:40 → EDBEDREQ 09:57 → 2E 18:13
DX: M94.0 Chondrocostal junction syndrome [Tietze] (principal); I25.10 Atherosclerotic heart disease of native coronary artery without angina pectoris; F03.90 Unspecified dementia, unspecified severity, without behavioral disturbance, psychotic disturbance, mood disturbance, and anxiety; E11.9 Type 2 diabetes mellitus without complications; F32.9 Major depressive disorder, single episode, unspecified; Z95.0 Presence of cardiac pacemaker; F41.9 Anxiety disorder, unspecified; I34.0 Nonrheumatic mitral (valve) insufficiency; D64.9 Anemia, unspecified; I36.1 Nonrheumatic tricuspid (valve) insufficiency; I11.9 Hypertensive heart disease without heart failure; Z79.82 Long term (current) use of aspirin; E78.5 Hyperlipidemia, unspecified
CPT/HCPCS: 36415; 71045; 78452; 80053; 80061; 82378; 82550; 82553; 82607; 82746; 83036; 83540; 83550; 83615; 84443; 84484; 85007; 85025; 85044; 85060; 85610; 85651; 85730; 86140; 87081; 93005; 93017; 93306; 93970; 94664; 99285; J1815; J2785